=== PATIENT | female | born 1980 | race Hispanic/Latino ===

== ENCOUNTER 2019-03-14 07:40 | Day surgery (SDC) | payer OTHER ==
[2019-03-10 13:44] VITALS: BMI 25.0
[2019-03-10 14:28] LABS: Hemoglobin 13.5 g/dL (12.0-16.0); Mean Corpuscular HGB CONC 32.7 g/dL (32.0-36.0); Mean Corpuscular Hemoglobin 28.9 pg (27.0-31.0); Mean Corpuscular Volume 88.5 fL (78.0-98.0); Mean Platelet Volume 8.6 fL (7.4-10.4); Platelet Count 213 thou/uL (130-400); RBC Distribution Width 11.4 % (11.5-14.5); Red Blood Cell (RBC) Count 4.67 mill/uL (4.20-5.40); White Blood Cell (WBC) Count 10.4 thou/uL (4.8-10.8)
[2019-03-10 14:33] LABS: BHCG - Serum Negative (NEGATIVE); Pregs Control Background? CLEAR/WHITE (CLR/WHITE); Pregs Control Bar Appear? YES (CONTROL BAR)
[2019-03-14] MEDS ORDERED: Gabapentin 300 MG CAP ONE (08:08)
[2019-03-14] MEDS ORDERED: Famotidine/PF 20 mg/2ml Vial ONE (08:09)
[2019-03-14] MEDS ORDERED: CeleCOXIB 100 MG CAP ONE (08:10)
--- NOTE | 2019-03-14 08:10 | HP ---
Scheduled for surgery on 03/14/2019. HISTORY OF PRESENT ILLNESS: Ms. Araya is a 38-year-old [place] female, G2, P2 with two spontaneous vaginal deliveries and a tubal ligation, who has been having increasing difficulties with pelvic pain. This has been ongoing for over a year and has also been associated with severe dysmenorrhea and dyspareunia. She has had an ultrasound in the past year, showing normal ovaries with small uterine fibroids noted. She reports pelvic pain deep in her pelvis with sex along with severe cramping and also heavy bleeding at times. She has tried nonsteroidals and Motrin for pain, declined oral contraceptive trial at this time since she is done with childbearing. She does not have any urinary tract symptomatology suggestive of a source. No nausea, vomiting, or cyclical constipation, or diarrhea reported. PAST MEDICAL HISTORY AND SURGICAL HISTORY: Tubal ligation. SOCIAL HISTORY: She is a nonsmoker. She is . No excessive alcohol use. OB HISTORY: She is a G4, P2, A2. CURRENT MEDICATIONS: Nonsteroidals and vitamin D. PHYSICAL EXAMINATION: VITAL SIGNS: Her height 5 feet 2 inches, weight 145 pounds, BMI 26.5, blood pressure 106/68, pulse 63, respirations 18, O2 saturation on room air is 99%. HEENT: Within normal limits. CHEST: Clear to auscultation. HEART: Regular rate and rhythm. S1 and S2. HEART: Heart sounds, no murmurs, rubs, or gallops. ABDOMEN: Soft, nontender, and nondistended. No palpable masses. PELVIC: Vulva and vagina had no lesions. Cervix had no lesions. Pap smear in the past years within normal limits along with negative cultures for gonorrhea and chlamydia. Her uterus was normal size and shape. It was mild tender. She did have posterior cul-de-sac tenderness on the exam suggestive possible endometriosis. This pain when examined reproduces the pain she experiences with intercourse. Adnexa had no masses. Some mild tenderness present on the left side. ASSESSMENT: This is a 38-year-old female, G4, P2, A2 with chronic pelvic pain, dyspareunia, dysmenorrhea, menorrhagia with small uterine fibroids on ultrasound with symptomatology consistent with most likely endometriosis versus adenomyosis. The patient has done with childbearing and is aware of definitive nature of surgery with hysterectomy to remove the uterus to prevent mensuration and the uterine cramping. We will also excise endometriosis as encountered at the time of surgery and the peritoneal surfaces. Risks and benefits of procedure have been discussed in detail. She is sent for informed consent signing for preop visit, is scheduled for surgery on 03/14/2019. Job ID: [id number]
[2019-03-14] MEDS ORDERED: Scopolamine 1.5 mg/72 hour Patch ONE (08:11)
[2019-03-14] MEDS ORDERED: Fentanyl 100 MCG/2 ML VIAL ONE ×3 (09:52→13:29)
[2019-03-14] MEDS ORDERED: Midazolam HCl 2 mg/2 ml Vial ONE (09:52)
[2019-03-14] MEDS ORDERED: Bupivacaine HCl 0.5%/Epinephrine 1:200,000/PF 30 ml Vial ONE (10:01)
[2019-03-14] MEDS ORDERED: Zolpidem Tartrate 5 MG TAB PO PRN (12:18)
[2019-03-14] MEDS ORDERED: Morphine 4 MG/ML VIAL SLOW IVP PRN (12:18)
[2019-03-14] MEDS ORDERED: Simethicone Chewable 80 MG TAB PO PRN (12:18)
[2019-03-14] MEDS ORDERED: traMADol HCl 50 MG TAB PO PRN ×2 (12:18)
[2019-03-14] MEDS ORDERED: diphenhydrAMINE 25 MG CAP PO PRN (12:18)
[2019-03-14] MEDS ORDERED: Bisacodyl 10 MG SUPP PR PRN (12:18)
[2019-03-14] MEDS ORDERED: Ondansetron PF 4 MG/2 ML Vial IVP PRN (12:18)
[2019-03-14] MEDS ORDERED: Promethazine HCl 25 MG/ML VIAL IM PRN ×2 (12:18→12:29)
[2019-03-14] MEDS ORDERED: Ondansetron HCl/PF 4 MG/2 ML Vial IVP PRN (12:29)
[2019-03-14] MEDS ORDERED: Morphine Sulfate 2 MG/ML SYRINGE SLOW IVP PRN (12:29)
[2019-03-14] MEDS ORDERED: Promethazine HCl 25 MG/ML VIAL SLOW IVP PRN (12:29)
[2019-03-14] MEDS ORDERED: PROPOFOL 200 MG/20 ML VIAL ONE (15:30)
[2019-03-14] MEDS ORDERED: Dexamethasone 20 MG/5 ML VIAL ONE (15:30)
[2019-03-14] MEDS ORDERED: Ketorolac Tromethamine 30 MG/ML VIAL ONE (15:30)
[2019-03-14] MEDS ORDERED: Rocuronium Bromide 10 MG/ML (10ML VIAL) ONE (15:30)
[2019-03-14] MEDS ORDERED: Lidocaine 1% PF 5 ML VIAL ONE (15:30)
[2019-03-14] MEDS ORDERED: Glycopyrrolate 0.2 MG/ML 5 ML SYRINGE ONE (15:30)
[2019-03-14] MEDS ORDERED: Ondansetron PF 4 MG/2 ML Vial ONE (15:30)
--- NOTE | 2019-03-14 15:32 | OP ---
DATE OF PROCEDURE: 03/14/2019 PREOPERATIVE DIAGNOSES: A 38-year-old Latin-[place] female with 1. Chronic pelvic pain. 2. Dysmenorrhea and menorrhagia. 3. Uterine fibroids. 4. Clinical adenomyosis. POSTOPERATIVE DIAGNOSES: A 38-year-old Latin-[place] female with 1. Chronic pelvic pain. 2. Dysmenorrhea and menorrhagia. 3. Uterine fibroids. 4. Clinical adenomyosis. 5. In addition, some left-sided pelvic adhesive disease status post release. JOINT CUTTER MACHINE SURGEON: Anjelica Aaron PA-C ANESTHESIA: General endotracheal. ESTIMATED BLOOD LOSS: 25 mL. COMPLICATIONS: None. COUNTS: Correct x2. ANTIBIOTICS: 2 g Ancef, on-call to OR. PATHOLOGY: Uterus, cervix, and bilateral fallopian tubes. FINDINGS: 1. Normal bilateral ovaries status post tubal ligation. 2. Filmy adhesions of the left fallopian tube, adnexal structure of the sigmoid colon, status post release. 3. Mildly enlarged adenomyotic-appearing uterus. 4. Clear urine present in Mcneil catheter postprocedure and bladder was watertight to distention greater than 300 mL postprocedure. 5. Bilateral ureteral peristalsis visualized postprocedure. DISPOSITION: Recovery room, stable. DESCRIPTION OF PROCEDURE: The patient previously received informed consent in regard to surgery. She was taken back to the operating room, where she received a general endotracheal anesthetic agent without complications. She was placed in dorsal lithotomy position with use of Landry stirrups and prepped and draped in usual sterile fashion. Mcneil catheter was placed and a side-arm speculum was placed in vagina. Anterior lip of cervix grasped with single-tooth tenaculum. The uterus sounded to 9 cm. A size 8 cm SONALI uterine manipulator with 4.0 cm cup was placed. Speculum and tenaculum removed. Attention was then turned to the abdomen, where perspective trocar sites were infiltrated with 0.5% Marcaine with epinephrine. A 12 mm supraumbilical incision was made. Veress needle was entered into the peritoneal cavity and the patient's pressure was noted to be less than 5 mmHg. The abdomen was insufflated with the patient's pressure of 15, approximately 5 L of carbon dioxide gas. Veress needle was then removed. A size 12-mm trocar was then placed in the supraumbilical incision and laparoscope was introduced through trocar sleeve, confirming proper entry. The patient was placed in more Trendelenburg positioning, and under laparoscopic guidance, bilateral lower quadrant 8-mm trocars were placed along with the right upper quadrant assistant professor of criminal justice port. The robot was then docked and I proceeded to break scrub and operate from the operative console while my assistants remained at the bedside. The uterus was elevated from the pelvis. The left adnexal structures were deviated from the pelvic sidewall and the filmy adhesions were taken down with monopolar scissors, freeing up the left adnexa. The left ovary was normal. The left fallopian tube fimbria was grasped by my assistant professor of criminal justice, and the mesosalpinx of the left tube was coagulated and transected with monopolar scissors and the tubal segment was removed out of the right upper quadrant port. The left utero-ovarian ligament was then coagulated with bipolar fenestrated cautery and then it was transected with monopolar scissors. Continued coagulation and transection of broad ligament hugging close to the uterus on the left side was carried out into the left round ligament was reached. It was coagulated and transected. The anterior leaf of the broad ligament was then entered and the vesicouterine peritoneal reflection was dissected in a layering technique, dissecting the bladder, past the cervical vaginal margin. The vessels were then skeletonized and coagulated in the internal cervical os region of the cervix with bipolar fenestrated cautery. This was carried down in likewise fashion on the right side of the uterus, where again the right fallopian tube was removed, coagulating the mesosalpinx and incising this and removing the tubal segment through the right upper quadrant assistant professor of criminal justice port. The right utero-ovarian ligaments were coagulated and transected. Serial coagulation of the broad ligament again on the right side was carried down to the right round ligament, which was coagulated and transected. Again, the anterior leaf of the broad ligament was entered and the vesicouterine peritoneum was incised in a layering technique, dropping the bladder atraumatically, past the cervical vaginal margin. The uterine vessels on the right side again were skeletonized and coagulated in the internal cervical os region. The bladder was then distended to make sure the bladder had been safely dissected, past the cervical vaginal margin and this was confirmed. The anterior colpotomy was then made from the 12 to 3 to 12 to 9 o'clock position with monopolar scissors and this was completed from the 6 to 9 and 6 to 3 o'clock position. The uterine specimen was then delivered in the vaginal vault. The monopolar scissors were exchanged with a Amos needle armored car driver. A Stratafix suture was brought into the pelvis by my assistant professor of criminal justice and then the vaginal cuff was closed in a running fashion with a Stratafix suture, starting in the right vaginal cuff angle to the left and back towards the midline. Hemostasis was secured. The excess suture and needle were then removed up in the right upper quadrant port intact. The pelvis was irrigated. Any areas of oozing were made hemostatic with bipolar fenestrated cautery. All pedicle sites were confirmed to be hemostatic. The robot was then undocked. The trocar sleeves were then removed. I then proceeded to close the fascial defect in the umbilicus area with a [id number] suture of 0 Vicryl with good closure confirmation. The remainder of the trocar sites were closed with 4-0 Monocryl suture with Dermabond. The vaginal vault was inspected with a sponge stick and was noted to be hemostatic. The Mcneil catheter was draining clear urine. The patient was awakened from anesthesia and transferred to recovery room in stable condition. Job ID: [id number]
[2019-03-14] MEDS: Sodium Chloride 0.9% 1,000 ML IV SCH ×2 (18:09→21:05)
[2019-03-14] MEDS: Ketorolac Tromethamine 30 MG/ML VIAL IVP SCH (18:54)
[2019-03-14] MEDS: Acetaminophen 1,000 MG in Premix Bag 1 BAG IVPB SCH (18:55)
[2019-03-15] MEDS: Acetaminophen 1,000 MG in Premix Bag 1 BAG IVPB SCH ×2 (00:23→05:51)
[2019-03-15] MEDS: Ketorolac Tromethamine 30 MG/ML VIAL IVP SCH (00:28)
[2019-03-15] MEDS: Sodium Chloride 0.9% 1,000 ML IV SCH (05:30)
[2019-03-15 06:00] LABS: Hemoglobin 10.7 g/dL (12.0-16.0); Mean Corpuscular HGB CONC 32.3 g/dL (32.0-36.0); Mean Corpuscular Hemoglobin 28.8 pg (27.0-31.0); Mean Corpuscular Volume 89.3 fL (78.0-98.0); Mean Platelet Volume 8.8 fL (7.4-10.4); Platelet Count 172 thou/uL (130-400); RBC Distribution Width 11.4 % (11.5-14.5); White Blood Cell (WBC) Count 9.5 thou/uL (4.8-10.8)
[2019-03-15] MEDS ORDERED: Ibuprofen 800 MG TAB PO SCH (06:00)
[2019-03-15 08:01] VITALS: BP 108/59; TEMP 98.9
--- NOTE | 2019-03-15 08:21 | PDOC.EVN ---
Event Note - Event Note Event Note: Tolerating diet. Ambulating and voiding. O:AFVSS HCT 33 % ABDOMEN SOFT AND NON DISTENDED. TROCHARSITES CLEAN AND DRY. A/P: POST OP DAY 1 FROM ROBOTIC [facility] FOR DYSMENOEEHEA, PELVIC PAIN. MENORRHAGIA, UTERINE FIBROIDS. SUSPECT ADENOMYOSIS. PATH PENDING. DISCHARGE HOME. F/U 2 AND 6 WEEKS.
--- NOTE | 2019-03-15 15:48 | DIS ---
DATE OF ADMISSION: 03/14/2019 DATE OF DISCHARGE: 03/15/2019 DIAGNOSES: 1. Chronic pelvic pain. 2. Dyspareunia. 3. Dysmenorrhea. 4. Uterine fibroids. 5. Clinical adenomyosis. PROCEDURES PERFORMED: Robotic total laparoscopic hysterectomy with bilateral salpingectomy. SUMMARY OF HOSPITAL COURSE: Ms. Marshal Higuera is a 38-year-old female, who has been having prolonged right lower quadrant pelvic pain along with severe dysmenorrhea and at times menorrhagia with dyspareunia. She underwent definitive surgical therapy for this on 03/15. At that time, she was noted to have what appeared to be clinical adenomyosis of uterus. Pathology is still pending and she did have some filmy adhesions on the left lower quadrant, the adnexal structures with otherwise normal-appearing ovaries. These adhesions were released laparoscopically. The patient has done well postoperatively. Vital signs have remained stable. She is ambulating, voiding, and tolerating regular diet without difficulty. Her hematocrit is stable at 33%. She has good pain control on oral Motrin and p.r.n. tramadol. She will be discharged home today with followup in 2 and 6 weeks. Pathology is pending at the time of this dictation. Script for tramadol 50 mg q.6 hours have been given as needed and instructed to use [id number] non-steroidals such as ibuprofen as directed. Job ID: [id number]
== END 2019-03-15 10:14 | disposition home or self-care (01) ==
LOC: SDC 07:40 → 3SE 12:17 → SDC 03-15 10:14
PROVIDERS: ATTEND Obstetrics & Gynecology
PROC: 0UT74ZZ Resection of Bilateral Fallopian Tubes, Percutaneous Endoscopic Approach (ICD-10-PCS; principal; 2019-03-14)
PROC: 0UT94ZZ Resection of Uterus, Percutaneous Endoscopic Approach (ICD-10-PCS; principal; 2019-03-14)
DX: D26.9 Other benign neoplasm of uterus, unspecified (principal); N80.0 Endometriosis of uterus; N72 Inflammatory disease of cervix uteri; D25.9 Leiomyoma of uterus, unspecified; N73.6 Female pelvic peritoneal adhesions (postinfective); G89.29 Other chronic pain; R10.2 Pelvic and perineal pain; Z79.899 Other long term (current) drug therapy
CPT/HCPCS: 36415; 84703; 85027; 86850; 86900; 86901; 88307; J0131; J0670; J0690; J1885; J2250; J2270; J2405; J3010; S0028

== ENCOUNTER 2019-07-29 01:38 | Emergency (ER) | payer SELFPAY ==
[2019-07-29 02:22] LABS: #Basophils 0.1 thou/uL (0.0-0.2); #Eosinphils 0.6 thou/uL (0.0-0.7); #Monocytes 0.7 thou/uL (0.11-0.59); #Neutrophils 7.8 thou/uL (1.40-6.50); %Basophils 0.7 % (0.0-1.0); %Eosinophils 4.7 % (0.0-10.0); %Lymphocytes 24.4 % (21.0-51.0); %Monocytes 5.9 % (0.0-10.0); %Neutrophils 64.3 % (42.0-75.0); Hemoglobin 12.4 g/dL (12.0-16.0); Mean Corpuscular HGB CONC 34.7 g/dL (32.0-36.0); Mean Corpuscular Hemoglobin 30.4 pg (27.0-31.0); Mean Corpuscular Volume 87.6 fL (78.0-98.0); Mean Platelet Volume 8.7 fL (7.4-10.4); Platelet Count 222 thou/uL (130-400); RBC Distribution Width 11.8 % (11.5-14.5); Red Blood Cell (RBC) Count 4.09 mill/uL (4.20-5.40); White Blood Cell (WBC) Count 12.2 thou/uL (4.8-10.8)
[2019-07-29 02:42] LABS: ALT (SGPT) 13 U/L (8-55); AST (SGOT) 14 U/L (5-34); Albumin 4.5 g/dL (3.5-5.0); Alkaline Phosphatase 55 U/L (40-110); Anion Gap 10 mmol/L (10-20); BUN (Urea Nitrogen) 14 mg/dL (7.0-18.7); Bilirubin, Total 0.2 mg/dL (0.2-1.2); Calc. Creatinine Clearance 0 mL/min (70-130); Carbon Dioxide 27 mmol/L (22-29); Chloride 105 mmol/L (98-107); Estimated GFR-MDRD 83; Globulin 2.9 g/dL (2.4-3.5); Glucose 117 mg/dL (70-105); Potassium 3.9 mmol/L (3.5-5.1); Protein, Total 7.4 g/dL (6.0-8.3); Sodium 138 mmol/L (136-145)
[2019-07-29] MEDS ORDERED: Morphine 4 MG/ML VIAL ONE (03:45)
[2019-07-29] MEDS ORDERED: Ondansetron PF 4 MG/2 ML Vial ONE (03:45)
[2019-07-29 05:31] LABS: Bilirubin Negative (Negative); Blood, Urine 2+ (Negative); Clarity Clear (Clear); Glucose, Urine (Dipstick) Normal (Negative); Leukocyte Negative Leu/uL (Negative); Nitrite Negative (Negative); Protein, Urine (Dipstick) Negative (Neg-Trace); Squamous Epithelial 0-3 HPF (0-3); Urobilinogen Normal mg/dL (Less than 2); WBC/HPF 0-3 HPF (0-3)
[2019-07-29 05:33] LABS: Pregnancy Test - Urine (BHCG) Negative (Negative); Pregu Control Background? CLEAR/WHITE (CLR/WHITE); Pregu Control Bar Appear? YES (CONTROL BAR); Specific Gravity 1.047 (1.002-1.036)
[2019-07-29 05:47] LABS: Bacteria/HPF 1+ HPF (None Seen); RBC/HPF 21-50 HPF (0-3); Sperm/HPF Rare HPF (None Seen)
--- NOTE | 2019-07-29 08:48 | CT ---
PRELIMINARY REPORT/[facility]/EMERGENCY AFTER HOURS PROCEDURE: EXAM: CT Abdomen and Pelvis with Intravenous Contrast CLINICAL HISTORY: F38 presents to the ED with c/o abd pain and vaginal bleeding onset tonight after sexual intercourse. Pt reports vaginal bleeding was minimal. Pt reports she had a hysterectomy in February 2019 (done by Dr. Whitaker). Pt reports similar sx's one month ago after having sexual intercouse. Pt reports she was seen by Dr. Whitaker at that time and was advised pelvic rest. Pt reports tonight was her first time h aving intercourse since. Pt reports she last saw Dr. Whitaker on 07/24/2019. TECHNIQUE: Axial computed tomography images of the abdomen and pelvis with intravenous contrast. CONTRAST: With; ISOVUE 370,100mL COMPARISON: None provided. FINDINGS: LUNG BASES: No basilar airspace consolidation or pleural effusion. LIVER: Unremarkable. GALLBLADDER AND BILE DUCTS: Unremarkable. No calcified stone. No ductal dilation. PANCREAS: Unremarkable. SPLEEN: Unremarkable. ADRENAL GLANDS: Unremarkable. KIDNEYS, URETERS, AND BLADDER: Unremarkable. No hydronephrosis or nephrolithiasis. No ureteral or tarah dder calculi. STOMACH AND BOWEL: There is a large amount of stool throughout the colon. Uncomplicated colonic diver ticuli are present. There is no intestinal obstruction or inflammation of bowel. APPENDIX: Appendix is within normal limits. PERITONEUM: There is mild free fluid within the posterior lower pelvis most likely physiologic. LYMPH NODES: No lymphadenopathy. REPRODUCTIVE: Uterus is absent. Adnexa are grossly normal. VASCULATURE: No aortic aneurysm. BONES: No fracture or suspicious osseous abnormality. ABDOMINAL WALL AND SOFT TISSUES: Unremarkable. IMPRESSION: Uncomplicated colonic diverticuli. Large amount of stool within the colon. ELECTRONICALLY SIGNED BY: Gracy Underwood MD Jul 29, 2019 5:11:49 AM CDT This report is intended for review by the ordering physician only, in accordance of law. If you recei ve this report in error, please call [facility] at [phone]. FINAL REPORT CT ABDOMEN AND PELVIS WITH IV CONTRAST: I agree with the preliminary report given by [facility].
[2019-07-29] MEDS ORDERED: Iopamidol-370 76% 500 ML 1 ML ONE (15:23)
== END 2019-07-29 05:30 | disposition home or self-care (01) ==
LOC: ERS 01:38
DX: N93.0 Postcoital and contact bleeding (principal)
CPT/HCPCS: 36415; 74177; 80053; 81003; 81015; 81025; 85025; 96374; 96375; J2270; J2405; Q9967

== ENCOUNTER 2020-07-24 13:09 | Outpatient (CLI) | payer OTHER | END 2020-07-24 13:10 | disposition home or self-care (01) | LOC: BICMAMMO 13:09 | PROVIDERS: ATTEND Nurse Practitioner Family | DX: Z12.31 Encounter for screening mammogram for malignant neoplasm of breast (principal) | CPT/HCPCS: 77063; 77067 ==

== ENCOUNTER 2021-03-08 13:26 | Outpatient (CLI) | payer OTHER | END 2021-03-08 13:27 | disposition home or self-care (01) | LOC: BICRAD 13:26 | PROVIDERS: ATTEND Nurse Practitioner Family | DX: R05.9 Cough, unspecified (principal) | CPT/HCPCS: 71046 ==

== ENCOUNTER 2022-04-09 10:29 | Outpatient (CLI) | payer OTHER | END 2022-04-09 10:30 | disposition home or self-care (01) | LOC: BICMAMMO 10:29 | PROVIDERS: ATTEND Family Medicine | DX: Z12.31 Encounter for screening mammogram for malignant neoplasm of breast (principal) | CPT/HCPCS: 77063; 77067 ==